=== PATIENT | male | born 1965 | race Caucasian/White ===

== ENCOUNTER 2021-01-17 16:36 | Inpatient (IN) | payer OTHER ==
[~2021-01-17] VITALS: Ht 177.8 cm; Wt 98.9 kg
--- NOTE | 2021-01-17 17:02 | NUR ---
Approx 2 days ago, pt noticed lump on left neck, had shooting pain down left arm. Also c/o left elbow and hand swelling, pain and limited movement (pulse & sensation intact). Pt denies any trauma. Pt denies CP, SOB, dizziness, n/v, minor distress noted.
[2021-01-17] MEDS ORDERED: IV NS 1000 ML 1,000 ML IV ONE (17:15)
[2021-01-17] MEDS ORDERED: MORPHINE SULFATE 4 MG/1 ML DISP.SYRIN IV ONE (17:15)
[2021-01-17] MEDS ORDERED: ONDANSETRON 4 MG/2 ML VIAL IV ONE ×2 (17:15→20:45)
[2021-01-17 17:35] LABS: HEMATOCRIT 40.1 % (36.7-47.1); MEAN CORPUSCULAR HEMOGLOBIN 31.6 uug (23.8-33.4); MEAN CORPUSCULAR VOLUME 92.4 fL (73.0-96.2); PLATELET COUNT (AUTO) 320 K/uL (152-348)
[2021-01-17 17:40] LABS: CREATININE 0.9 mg/dL (0.6-1.3); POTASSIUM 3.4 mmol/L (3.5-5.1)
[2021-01-17] MEDS ORDERED: MORPHINE SULFATE 4 MG/1 ML DISP.SYRIN ONE (17:40)
[2021-01-17] MEDS ORDERED: MORPHINE SULFATE 2 MG/1 ML DISP.SYRIN ONE (17:41)
[2021-01-17] MEDS ORDERED: ONDANSETRON 4 MG/2 ML VIAL ONE ×2 (17:41→20:54)
[2021-01-17 17:46] LABS: BILIRUBIN,DIRECT 0.2 mg/dL (0.0-0.2); BILIRUBIN,TOTAL 0.3 mg/dL (0.2-1.0); TOTAL PROTEIN, SERUM 6.8 g/dL (6.4-8.2)
[2021-01-17] MEDS ORDERED: HYDROMORPHONE 1 MG/1 ML DISP.SYRIN ONE ×2 (17:56→20:54)
[2021-01-17] MEDS ORDERED: LORAZEPAM 2 MG/1 ML VIAL IV ONE (18:15)
[2021-01-17] MEDS ORDERED: KETAMINE HCL 500 MG/10 ML INJ IV ONE (18:15)
[2021-01-17] MEDS ORDERED: LORAZEPAM 2 MG/1 ML VIAL ONE (18:23)
[2021-01-17 18:34] LABS: BAND % (MANUAL) 2 % (0-10); LYMPHOCYTES % (MANUAL) 7 % (20-40); MONOCYTES % (MANUAL) 21 % (2-10); NEUTROPHILS % (MANUAL) 70 % (42-75)
[2021-01-17] MEDS ORDERED: KETAMINE HCL 500 MG/10 ML INJ ONE (18:42)
[2021-01-17] MEDS ORDERED: LIDOCAINE HCL 1% 20 ML VIAL ONE (19:11)
--- NOTE | 2021-01-17 19:20 | NUR ---
Pre medicated pt for US. Pt in extreme pain, left elbow, informed, add'l meds ordered and given. Ice applied to elbow anterior.
[2021-01-17] MEDS ORDERED: VANCOMYCIN 1G/D5W 200 ML PIGGYBACK IV ONE (19:30)
[2021-01-17] MEDS ORDERED: VANCOMYCIN IV 500 MG in IV DEXTROSE 5% 100 ML IV ONE (19:30)
[2021-01-17] MEDS ORDERED: CEFTRIAXONE 1 G in IV DEXTROSE 5% 50 ML IV ONE (19:45)
[2021-01-17] MEDS ORDERED: VANCOMYCIN IV 200 ML ONE (20:06)
[2021-01-17] MEDS ORDERED: VANCOMYCIN HCL 500 MG VIAL ONE (20:06)
[2021-01-17] MEDS ORDERED: CEFTRIAXONE /D5W 50ML IVPB **ER PYXIS IV ONE (20:06)
--- NOTE | 2021-01-17 20:37 | NUR ---
Room Assignment 320 for Med Sug
[2021-01-17] MEDS ORDERED: HYDROMORPHONE 1 MG/1 ML DISP.SYRIN IV ONE ×2 (20:45→21:30)
[2021-01-17] MEDS ORDERED: HYDROMORPHONE 2 MG/1 ML DISP.SYRIN ONE (21:33)
--- NOTE | 2021-01-17 21:41 | NUR ---
Gave report to [facility] nurse.
[2021-01-17 23:00] VITALS: BP 138/80
[2021-01-17] MEDS ORDERED: Z GUARD REMEDY PASTE 57 GM TUBE TOP PRN (23:00)
[2021-01-17] MEDS ORDERED: DEXTROSE 50% 50 ML DISP.SYRIN IV PRN (23:00)
[2021-01-17] MEDS ORDERED: ACETAMINOPHEN 325 MG TABLET PO PRN (23:00)
[2021-01-17] MEDS ORDERED: TRAZODONE 100 MG TABLET PO PRN (23:00)
[2021-01-17] MEDS ORDERED: ONDANSETRON 4 MG/2 ML VIAL IV PRN (23:00)
[2021-01-17] MEDS: ENOXAPARIN SODIUM 40 MG/0.4 ML DISP.SYRIN SQ SCH (23:00)
[2021-01-18 04:00] VITALS: BP 147/98
[2021-01-18] MEDS: HYDROMORPHONE 1 MG/1 ML DISP.SYRIN IV PRN ×4 (05:52→22:21)
[2021-01-18 06:11] LABS: MEAN CORPUSCULAR HEMOGLOBIN 31.6 uug (23.8-33.4); MEAN CORPUSCULAR VOLUME 92.9 fL (73.0-96.2); PLATELET COUNT (AUTO) 294 K/uL (152-348)
[2021-01-18 06:44] LABS: BILIRUBIN,TOTAL 0.5 mg/dL (0.2-1.0); CREATININE 0.8 mg/dL (0.6-1.3); MAGNESIUM 2.1 mg/dL (1.8-2.4); PHOSPHOROUS 2.9 mg/dL (2.5-4.9); POTASSIUM 4.3 mmol/L (3.5-5.1); THYROID STIMULATING HORMONE 1.276 mIU/mL (0.358-3.740); TOTAL PROTEIN, SERUM 6.7 g/dL (6.4-8.2)
[2021-01-18] MEDS: PANTOPRAZOLE SODIUM 40 MG TABLET.DR PO SCH (06:50)
--- NOTE | 2021-01-18 07:00 | NUR ---
SHIFT NOTE: RECEIVED REPORT FROM ER PATIENT AND WAS SLEEP WAS GIVEN 1 MG OF DILAUDID IVP IN ER AND PT ASSESSED HAS REDNESS AND SWOLLEN LEFT ARM AND A SORE ON ELBOW PICTURE WERE TAKEN AND PUT IN CHART PT HAS IV RT FOREARM 22. PT IS MED-SURG NO SIGNS OF DISTRESS NOTED. PT PULSE LOW PUT ON 3.5L NASAL CANULA. WILL ENDORSE TO AM NURSE.
--- NOTE | 2021-01-18 08:00 | NUR ---
RECEIVED CHANGE OF SHIFT REPORT. PT C/O OF PAIN ON THE RIGHT ARM, SWELLING, REDNESS, STATES ITS FROM A BUG BITE. PT A/OX4, ON 3.5L O2 SATURATING AT 98%. PT VOIDING VIA URINAL. IV ON THE RIGHT FA 20G SALINE LOCK. CALL LIGHT WITHIN REACH, BED LOW AND LOCKED, WILL CONTINUE WITH PLAN OF CARE.
[2021-01-18 08:56] VITALS: BP 144/91
--- NOTE | 2021-01-18 09:20 | NUR ---
PT BS IS 174, PT REFUSED INSULIN, WILL CONTINUE TO MONITOR
[2021-01-18] MEDS: BLOOD SUGAR DIAGNOSTIC 1 EACH STRIP VI SCH ×4 (09:25→20:46)
--- NOTE | 2021-01-18 09:30 | NUR ---
PT ON 3L O2 SATURATING AT 98%, NO SIGNS OF DISTRESS, PT IV INFUSING AT 75CC/HR, WILL CONTINUE TO MONITOR.
[2021-01-18] MEDS ORDERED: VANCOMYCIN IV 1,500 MG in IV DEXTROSE 5% 500 ML IV SCH (10:00)
[2021-01-18] MEDS: IV NS 1000 ML 1,000 ML IV PRN (11:25)
[2021-01-18] MEDS: VANCOMYCIN IV 1,500 MG in IV DEXTROSE 5% 500 ML IV SCH ×2 (11:25→22:21)
--- NOTE | 2021-01-18 11:40 | NUR ---
PT BS IS 176, PT REFUSED INSULIN, WILL CONTINUE TO MONITOR
[2021-01-18 12:37] VITALS: BP 142/85
[2021-01-18 12:46] LABS: LYMPHOCYTES % (MANUAL) 9 % (20-40); MONOCYTES % (MANUAL) 16 % (2-10); NEUTROPHILS % (MANUAL) 75 % (42-75)
[2021-01-18 16:56] VITALS: BP 159/87
--- NOTE | 2021-01-18 19:00 | NUR ---
PT C/O OF PAIN ON THE RIGHT ARM, MEDICATIONS GIVEN ORDERED, ARM IN SLING AT 90 DEGREE ANGLE, ALL NEEDS MET THIS SHIFT, SWELLING, REDNESS, PT A/OX4, ON 3.5L O2 SATURATING AT 98%. PT VOIDING VIA URINAL. IV ON THE RIGHT FA 20G INFUSING NS AT 75ML/HR. CALL LIGHT WITHIN REACH, BED LOW AND LOCKED, WILL ENDORSE TO ONCOMING NURSE
[2021-01-18 20:00] VITALS: BP 149/87
[2021-01-18] MEDS: ENOXAPARIN SODIUM 40 MG/0.4 ML DISP.SYRIN SQ SCH (20:47)
[2021-01-18] MEDS: CEFTRIAXONE 2 G in IV DEXTROSE 5% 100 ML IV SCH (20:48)
[2021-01-19] MEDS: HYDROMORPHONE 1 MG/1 ML DISP.SYRIN IV PRN ×5 (02:31→19:33)
--- NOTE | 2021-01-19 03:33 | NUR ---
Pt received sleeping in bed. AxOx4 . VSS. C/o 03/22 pain in left arm. Administered Dilaudid x2. No s/s of SOB noted. On 2.5L NC saturating @ 100%. Righ tForarm IV, dislodged, d/cd and established new IV on right hand 22G, patent and intact running NS @75cc/hr and antibiotics. All due medications administered and tolerated well. BS 205, patient refused coverage per sliding scale. Left arm is in a sling at approximately 90 degrees, painful to readjust and pt refuses to be touch at the moment. Pt voiding in urinal, good output. Need attended too, kept comfortable. Will continue to monitor.
[2021-01-19 04:00] VITALS: BP 113/73
[2021-01-19] MEDS: PANTOPRAZOLE SODIUM 40 MG TABLET.DR PO SCH (06:18)
[2021-01-19] MEDS: IV NS 1000 ML 1,000 ML IV PRN (06:24)
[2021-01-19] MEDS: BLOOD SUGAR DIAGNOSTIC 1 EACH STRIP VI SCH ×4 (06:27→21:03)
--- NOTE | 2021-01-19 07:15 | NUR ---
c/O 8/10 PAIN ADMINISTERED DILAUDID prn PER PT REQUEST.
--- NOTE | 2021-01-19 07:30 | NUR ---
Patient received in bed, alert and oriented x4. Patient just received dose of Dilaudid and reports no pain or other discomforts at this time. No acute distress noted at this time. Patient is on 2.5L of O2 via NC saturating at 100%. Right hand IV is intact and running IVF at 75 mL/h as ordered. Patient's blood sugar this morning is 147 and is refusing insulin at this time. Left arm is in a sling at about 90 degrees and elevated on pillows. Call light and personal belongings within easy reach. Will continue to monitor.
[2021-01-19] MEDS: INSULIN REGULAR, HUMAN 300 UNIT/3 ML VIAL SQ PRN ×3 (07:46→21:11)
[2021-01-19] MEDS: VANCOMYCIN IV 1,500 MG in IV DEXTROSE 5% 500 ML IV SCH ×2 (09:27→22:24)
--- NOTE | 2021-01-19 11:15 | NUR ---
Patient's blood sugar is 287 and he continues to refuse insulin. Educated on hyperglycemia and importance of taking insulin for blood sugar control, but continues to refuse stating that it is "poison." MD notified with no new orders at this time.
[2021-01-19 11:23] VITALS: BP 140/78
--- NOTE | 2021-01-19 16:21 | NUR ---
Patient blood sugar is 164. Continues to refuse insulin. MD aware.
[2021-01-19 16:42] VITALS: BP 139/92
[2021-01-19 20:14] VITALS: BP 149/82
[2021-01-19] MEDS: CEFTRIAXONE 2 G in IV DEXTROSE 5% 100 ML IV SCH (20:52)
[2021-01-19] MEDS: ENOXAPARIN SODIUM 40 MG/0.4 ML DISP.SYRIN SQ SCH (20:58)
[2021-01-20] MEDS: IV NS 1000 ML 1,000 ML IV PRN (00:15)
[2021-01-20] MEDS: HYDROMORPHONE 1 MG/1 ML DISP.SYRIN IV PRN (01:16)
[2021-01-20] MEDS: BLOOD SUGAR DIAGNOSTIC 1 EACH STRIP VI SCH (06:54)
[2021-01-20] MEDS: PANTOPRAZOLE SODIUM 40 MG TABLET.DR PO SCH (06:54)
--- NOTE | 2021-01-20 07:00 | NUR ---
c/O 02/19 PAIN ADMINISTERED DILAUDID prn PER PT REQUEST. Iv on right hand dislodged. Inserted new IV Right forearm 22G, running 75cc/hr NS. No acute distress noted at this time. Patient is on 1.5L of O2 via NC saturating at 98%. Patient's blood sugar this morning is 206 and is refusing insulin at this time. Left arm is in a sling at about 90 degrees and elevated on pillows. Call light and personal belongings within easy reach. Will continue to monitor.
[2021-01-20 07:37] LABS: HEMATOCRIT 39.3 % (36.7-47.1); MEAN CORPUSCULAR HEMOGLOBIN 32.4 uug (23.8-33.4); MEAN CORPUSCULAR VOLUME 91.8 fL (73.0-96.2); PLATELET COUNT (AUTO) 334 K/uL (152-348)
[2021-01-20 07:59] LABS: CARBON DIOXIDE 28 mmol/L (21-32); CHLORIDE 98 mmol/L (98-107); CREATININE 0.6 mg/dL (0.6-1.3); GLUCOSE 201 mg/dL (74-106); MAGNESIUM 2.2 mg/dL (1.8-2.4); PHOSPHOROUS 2.9 mg/dL (2.5-4.9); POTASSIUM 3.9 mmol/L (3.5-5.1); UREA NITROGEN, BLOOD 10 mg/dL (7-18)
[2021-01-20] MEDS ORDERED: VANCOMYCIN IV 1,500 MG in IV DEXTROSE 5% 500 ML IV SCH (08:00)
--- NOTE | 2021-01-20 08:00 | NUR ---
PT awake alert orient x 4. Pt left arm swollen +3. Sling on and arm at 90 degrees. Offered ice and pt refused. Pt denies any c/o pain. Call light is within reach.
--- NOTE | 2021-01-20 10:45 | NUR ---
Pt left AMA and notified MD. Discussed with pt that his infx will get worse. PT states "Iwanna leave my son is downstairs to pick me up. "
[2021-01-20] MEDS ORDERED: METF-442 PO (23:31)
[2021-01-20] MEDS ORDERED: SITA50TA PO (23:31)
[2021-01-20] MEDS ORDERED: LISI10TA29 PO (23:31)
[2021-01-20] MEDS ORDERED: CEFU500T66 PO (23:31)
[2021-01-22] MEDS ORDERED: HYDROMORPHONE 1 MG/1 ML DISP.SYRIN IV PRN (09:55)
== END 2021-01-20 10:45 | disposition left against medical advice (07) | DRG 558 ==
LOC: ER 16:40 → MEDSURG3 21:40
PROVIDERS: ADMIT Nurse Practitioner Acute Care; ATTEND Nurse Practitioner Acute Care
PROC: 0R9M3ZX Drainage of Left Elbow Joint, Percutaneous Approach, Diagnostic (ICD-10-PCS; principal; 2021-01-17)
DX: M71.122 Other infective bursitis, left elbow (principal); E87.1 Hypo-osmolality and hyponatremia; D72.829 Elevated white blood cell count, unspecified; E11.9 Type 2 diabetes mellitus without complications; I10 Essential (primary) hypertension; Z98.1 Arthrodesis status; B96.89 Other specified bacterial agents as the cause of diseases classified elsewhere; Z20.822 Contact with and (suspected) exposure to COVID-19
CPT/HCPCS: 36415; 70030-TC; 83605; 83735; 83986; 84100; 84443; 85025; 85651; 85730; 86140; 87070; A4663; G0378; J0696; J1170; J1650; J1815; J2060; J2270; J2405; J3370; J3490; J7030; J7060

== ENCOUNTER 2021-12-23 00:33 | Emergency (ER) | payer OTHER ==
[~2021-12-23] VITALS: Ht 177.8 cm; Wt 90.7 kg
[~2021-12-23 00:33] MED LIST: CEFU500T66 PO; LISI10TA29 PO; METF-442 PO; SITA50TA PO
[2021-12-23] MEDS ORDERED: OXYC-128 PO (01:52)
--- NOTE | 2021-12-23 02:14 | NUR ---
Patient discharged to home in stable condition. Written and verbal after care instructions given. Patient verbalizes understanding of instructions. Stressed follow up or return to ER for worsening s/s. pt ambulated with steady gait. no chest pain. no SOB. AOx4
[2021-12-23 02:15] VITALS: BP 137/91
== END 2021-12-23 02:15 | disposition home or self-care (01) ==
LOC: ER 00:38
DX: S06.0X1A Concussion with loss of consciousness of 30 minutes or less, initial encounter (principal); R40.2362 Coma scale, best motor response, obeys commands, at arrival to emergency department; R40.2142 Coma scale, eyes open, spontaneous, at arrival to emergency department; R40.2252 Coma scale, best verbal response, oriented, at arrival to emergency department; S49.91XA Unspecified injury of right shoulder and upper arm, initial encounter; Y08.89XA Assault by other specified means, initial encounter; Y92.89 Other specified places as the place of occurrence of the external cause; Z91.013 Allergy to seafood
CPT/HCPCS: 70450; 73030; A4663

== ENCOUNTER 2024-07-03 22:57 | Emergency (ER) | payer OTHER ==
[~2024-07-03] VITALS: Ht 177.8 cm; Wt 95.3 kg
[~2024-07-03 22:57] MED LIST changes: +OXYC-128 PO
[2024-07-04 01:44] VITALS: BP 147/101; O2SAT 95
== END 2024-07-04 01:44 | disposition left against medical advice (07) ==
LOC: ER 23:01
DX: M25.561 Pain in right knee (principal); M17.11 Unilateral primary osteoarthritis, right knee; Z79.84 Long term (current) use of oral hypoglycemic drugs; Z79.899 Other long term (current) drug therapy; Z98.1 Arthrodesis status
CPT/HCPCS: 73560; A4606; A4663

== ENCOUNTER 2025-02-04 22:05 | Emergency (ER) | payer MEDICARE, OTHER ==
[~2025-02-04] VITALS: Ht 177.8 cm; Wt 107.0 kg
[2025-02-04] MEDS ORDERED: ONDANSETRON ODT 4 MG TAB.RAPDIS ONE (22:35)
[2025-02-04] MEDS ORDERED: OXYCODONE/APAP 5-325 MG TABLET ONE (22:35)
[2025-02-04] MEDS: OXYCODONE/APAP 5-325 MG TABLET PO ONE (22:38)
[2025-02-04] MEDS: ONDANSETRON ODT 4 MG TAB.RAPDIS SL ONE (22:38)
[2025-02-04 22:49] LABS: PLATELET COUNT (AUTO) 306 K/uL (152-348); RED BLOOD CELL COUNT(AUTO) 4.48 MIL/uL (4.06-5.63); RED CELL DISTRIBUTION WIDTH 13.1 % (12.1-16.2); WHITE BLOOD COUNT (AUTO) 8.7 K/uL (3.6-10.2)
[2025-02-04] MEDS ORDERED: OXYC-128 PO (22:58)
[2025-02-04] MEDS ORDERED: HYDR28OI2 TP (22:58)
[2025-02-04 23:11] LABS: CREATININE 0.7 mg/dL (0.6-1.3); SODIUM SERUM 137.0 mmol/L (136-145); UREA NITROGEN, BLOOD 13.0 mg/dL (7-18)
[2025-02-04 23:17] LABS: ASPARTATE AMINOTRANSFERASE 42.0 U/L (15-37); TOTAL PROTEIN, SERUM 7.1 g/dL (6.4-8.2)
[2025-02-05 00:26] VITALS: BP 146/99; O2SAT 99
== END 2025-02-05 00:27 | disposition home or self-care (01) ==
LOC: ER 22:05
DX: R60.0 Localized edema (principal); G89.29 Other chronic pain; M25.561 Pain in right knee; R21 Rash and other nonspecific skin eruption; F10.20 Alcohol dependence, uncomplicated; M79.605 Pain in left leg; M79.604 Pain in right leg; Z79.84 Long term (current) use of oral hypoglycemic drugs; Z79.899 Other long term (current) drug therapy; Z98.1 Arthrodesis status; Z91.013 Allergy to seafood; Z60.2 Problems related to living alone; Y90.9 Presence of alcohol in blood, level not specified
CPT/HCPCS: 36415; 85025; A4606; A4663; Q0162